=== PATIENT | male | born 2000 | race African-American/Black ===

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

== ENCOUNTER 2018-04-25 05:56 | Emergency (ER) | payer MEDICAID ==
[~2018-04-25] VITALS: Ht 185.4 cm; Wt 90.9 kg
[2018-04-25 06:03] VITALS: Ht 185.4 cm; Wt 90.9 kg
[2018-04-25] MEDS ORDERED: ERYTHROMYCIN OPT1 GM EACH EYE (06:33)
[2018-04-25 06:45] VITALS: BP 122/68
== END 2018-04-25 06:52 | disposition home or self-care (01) ==
LOC: D.ER 05:56
DX: H10.33 Unspecified acute conjunctivitis, bilateral (principal); F17.200 Nicotine dependence, unspecified, uncomplicated

== ENCOUNTER 2018-04-29 18:46 | Emergency (ER) | payer MEDICAID ==
[~2018-04-29] VITALS: Ht 185.4 cm; Wt 93.2 kg
[~2018-04-29 18:46] MED LIST: ERYTHROMYCIN OPT1 GM EACH EYE
[2018-04-29 19:03] VITALS: Ht 185.4 cm; Wt 93.2 kg
[2018-04-29 19:52] VITALS: BP 128/70
== END 2018-04-29 19:53 | disposition home or self-care (01) ==
LOC: D.ER 18:46
DX: Z00.00 Encounter for general adult medical examination without abnormal findings (principal); E11.9 Type 2 diabetes mellitus without complications